=== PATIENT | female | born 1975 | race Caucasian/White ===

== ENCOUNTER 2020-08-26 02:24 | Inpatient (IN) | payer SELFPAY ==
[2020-08-26 02:24] VITALS: BP 132/90; PULSE 90; RESP 20; TEMP 36.5; O2SAT 97
[2020-08-26 02:25] VITALS: BMI 45.1
[2020-08-26 06:00] VITALS: BP 115/69; PULSE 74; RESP 18; TEMP 37.1; O2SAT 97
--- NOTE | 2020-08-26 10:29 | PM.NHP ---
Providers/Chief Complaint Admitting Physician: Víctor Guido DO Primary Care Provider: Sally Ledesma NP Chief Complaint: SI HPI NPU History of Present Illness Sandra Zarate is a 45 year old female with longstanding psychiatric history and polysubstance abuse presented to an [facility] emergency department with suicidal ideation with plan to overdose. Patient reports that she had been feeling depressed for several months in the context of ongoing substance use stating that she uses cannabis and methamphetamine twice a week. Patient reports past suicidal gestures/attempts but states that she has never had any intent or plan of ending her life. She reports that her last episode was 3 years ago at which time she was hospitalized and had been taking citalopram which she reports with good effect. She also reports that this was the last time she had substance counseling/treatment. Patient continues to report depressive symptoms, low mood, decreased energy and interest. Patient reports multiple stressors to include unstable living arrangement which exacerbate her symptoms. Patient denies any recent or past hypomanic or manic episodes. Patient denies any perceptual disturbances or hallucinations or delusions related to her mood symptoms. She currently denies any suicidal ideation or thoughts about self-harm. Patient reports intermittent anxiety symptoms but denies any recent panic attacks. Psychiatric review of systems is otherwise negative. Patient reports unstable living arrangement, states that she occasionally lives with her adult children Review of Systems General: Reports: 10 or more systems reviewed and unremarkable except in HPI and below Meds NPU Home Medications Medication Instructions Recorded Confirmed Last Taken Type No Known Home Medications 08/26/20 08/26/20 Unknown History Allergies Allergy/AdvReac Type Severity Reaction Status Date / Time No Known Allergies Allergy Verified 08/26/20 04:23 [facility] NPU Other Psychiatric History: Other Psychiatric History: Denies any recent medication management or outpatient treatment for behavioral health Reports last psychiatric hospitalization occurring 3 years ago and states being hospitalized on a couple of other occasions Reports multiple past suicidal gestures but denies any suicide attempts or self-harm behavior Mental Status Exam MSE Comments: Lying in bed, tired appearing, wearing hospital scrubs, obese, polite, interactive, calm, good eye contact Psychomotor activity is decreased, no agitation Speech is low volume, normal rate, spontaneous, fair articulation, not pressured I feel tired, congruent affect, not labile Soporific, oriented to person, place, time, situation Memory and concentration appear to be intact per interview Intellectual functioning appears to be average based on vocabulary, interview Thought process, linear, no flight of ideas, no looseness of associations Thought content, no delusions, no hallucinations, no suicidal or homicidal ideation Insight and judgment appear to be intact Vitals/I&O/Wt Last Vital Signs Temp 98.8 F 08/26/20 06:00 Pulse 74 08/26/20 06:00 Resp 18 08/26/20 06:00 BP 115/69 08/26/20 06:00 Pulse Ox 97 08/26/20 06:00 Weight last 48 hrs Weight 113.398 kg Weight 113.398 kg A&P Assessment and plan (1) Suicidal ideation: Status: Acute (2) Cannabis abuse: Status: Acute (3) Methamphetamine abuse: Status: Acute (4) Depressive disorder: Status: Acute Additional A&P Information [facility] with report of depressive symptoms for several months with ongoing methamphetamine and cannabis abuse off of medication and would likely benefit from restarting antidepressant with coordinated outpatient MEDICATION MANAGEMENT AND SUBSTANCE COUNSELING FOLLOW-UP. INVOLUNTARY ADMIT to inpatient psychiatry START citalopram 20 mg daily targeting mood, anxiety Encouraged patient to participate in unit activities to include group sessions, unit milieu Coordinate with criminal justice social worker for post discharge mental health and substance follow-up Involuntary Hold Information 96 Hour Hold: 96 Hour Involuntary Admission: Yes 96 Hour Hold Ending Date: 08/30/20 96 Hour Hold Ending Time: 02:15 Attestations NPU Medical Necessity Statement*: Psychiatric hospitalization indicated for medication stabilization, coordination for safe discharge Anticipate hospital stay to exceed 2 midnights Time Spent in Patient Care: Greater than 35 minutes (>than 50% of time spent in counselling and/or direct pt care on unit). 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
[2020-08-26] MEDS: citalopram 20 mg Tablet PO (10:39)
[2020-08-26 14:00] VITALS: BP 114/79; PULSE 80; RESP 14; TEMP 36.6; O2SAT 95
[2020-08-26] MEDS: hyDROXYzine 25 mg Capsule 50 MG PO (15:15)
--- NOTE | 2020-08-26 15:15 | PC.NURSE ---
PRN VISTARIL 50 MG GIVEN PO PER PT C/O STATED ANXIETY. PT STATED SHE IS COMING DOWN OFF METH WILL CONT TO MONITOR
[2020-08-26 22:00] VITALS: BP 118/76; PULSE 72; RESP 16; TEMP 36.7; O2SAT 96
[2020-08-27 05:39] VITALS: BP 119/82; PULSE 71; RESP 17; TEMP 36.9; O2SAT 95
[2020-08-27] MEDS: citalopram 20 mg Tablet PO (08:24)
--- NOTE | 2020-08-27 12:51 | PM.NPN ---
Subjective NPU Subjective: Interval history: She continues to report feeling tired but states that her mood has improved, denies any interval suicidal ideation She denies any interval psychotic symptoms Reports that her appetite is improved Reports improved sleep States that she has been compliant with her medication and denies any medication side effects States that she is interested in follow on medication management, therapy as well as substance counseling Mental Status Exam MSE Comments: Sitting up in her bed, calm, cooperative in bed, calm, interactive, good eye contact Psychomotor activity is neither increased nor decreased, no agitation Speech is normal volume, normal rate, spontaneous, fair articulation, not pressured I feel a little better, congruent affect, not labile Alert, oriented to person, place, time, situation Memory and concentration appear to be intact per interview Thought process, linear, no flight of ideas, no looseness of associations Thought content, no delusions, no hallucinations, no suicidal or homicidal ideation Insight and judgment appear to be intact Vitals/I&O/Wt Last Vital Signs Temp 98.4 F 08/27/20 05:39 Pulse 71 08/27/20 05:39 Resp 17 08/27/20 05:39 BP 119/82 08/27/20 05:39 Pulse Ox 95 08/27/20 05:39 Weight last 48 hrs Weight 113.398 kg Weight 113.398 kg A&P Assessment and plan (1) Suicidal ideation: Status: Acute (2) Depressive disorder: Status: Acute (3) Methamphetamine abuse: Status: Acute (4) Cannabis abuse: Status: Acute Additional A&P Information Reports improving mood CONTINUE current medication, continue to monitor Involuntary Hold Information 96 Hour Hold: 96 Hour Involuntary Admission: Yes 96 Hour Hold Ending Date: 08/30/20 96 Hour Hold Ending Time: 02:15 Attestations NPU Medical Necessity Statement*: Continues to require psychiatric hospitalization for medication stabilization Coding Level of Care 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
[2020-08-27 14:00] VITALS: BP 110/75; PULSE 74; RESP 18; TEMP 36.1; O2SAT 96
[2020-08-27] MEDS: hyDROXYzine 25 mg Capsule 50 MG PO ×2 (14:48→20:14)
--- NOTE | 2020-08-27 14:49 | PC.NURSE ---
Addendum entered by Nay Peters LPN 08/27/20 15:59: prn med effective no further c/o anxiety, pt asleep in bed in room, rest even et unlabored Original Note: PRN VISTARIL 50 MG GIVEN PO PER PT C/O STATED ANXIETY AND REQUEST OF ANXIETY MED. PT WITHDRAWN, ISOLATING TO ROOM. WILL CONT TO MONITOR FOR DESIRED MED EFFECTIVENESS.
--- NOTE | 2020-08-27 20:15 | PC.NURSE ---
pt requested anxiety med. pt stated, she's driving me batty! indicating another pt. visatril 50mg po given.
[2020-08-27 21:04] VITALS: PULSE 86; RESP 22; O2SAT 94
[2020-08-27 22:00] VITALS: BP 117/78; PULSE 75; RESP 17; TEMP 36.7; O2SAT 95
--- NOTE | 2020-08-27 23:02 | PC.NURSE ---
Patient could not tolerate C-PAP. Patient refuses to use / wear C-pap. C-PAP equipment removed from room RT notified. network control operators supervisor notified; 1:1 sitter sent back to Patricia per oracle data warehouse developer request.
[2020-08-28 06:00] VITALS: BP 112/78; PULSE 78; RESP 17; TEMP 36.7; O2SAT 94
[2020-08-28] MEDS: citalopram 20 mg Tablet PO (08:41)
--- NOTE | 2020-08-28 08:45 | P.PN_ITS ---
Subjective NPU Subjective: Interval history: Patient reporting some depressive symptoms today, states that she feels sad, denies any interval suicidal ideation Patient reports intermittent anxiety symptoms and stress related symptoms related to post discharge plan States that she slept well last evening Reports that her appetite is been good States that she has been compliant with her medication and denies any medication side effects Per staff, no interval behavioral disturbances Mental Status Exam MSE Comments: Sitting in the day room, polite, interactive, sitting mostly with her head down but making eye contact for interview, cooperative Psychomotor activity is decreased, no agitation Speech is normal volume, normal rate, spontaneous, fair articulation, not pressured I feel depressed, congruent affect, not labile Alert, oriented to person, place, time, situation Memory and concentration appear to be intact per interview Thought process, linear, no flight of ideas, no looseness of associations Thought content, no delusions, no hallucinations, no suicidal or homicidal ideation Insight and judgment appear to be intact Vitals/I&O/Wt Last Vital Signs Temp 98.0 F 08/28/20 06:00 Pulse 78 08/28/20 06:00 Resp 17 08/28/20 06:00 BP 112/78 08/28/20 06:00 Pulse Ox 94 08/28/20 06:00 A&P Assessment and plan (1) Suicidal ideation: Status: Acute (2) Depressive disorder: Status: Acute (3) Methamphetamine abuse: Status: Acute (4) Cannabis abuse: Status: Acute Additional A&P Information Patient reporting intermittent depressive symptoms, denies any interval suicidal ideation CONTINUE current medication, continue to monitor Continue coordination with social studies teacher for post discharge mental health care and substance counseling Involuntary Hold Information 96 Hour Hold: 96 Hour Involuntary Admission: Yes 96 Hour Hold Ending Date: 08/30/20 96 Hour Hold Ending Time: 02:15 Attestations NPU Medical Necessity Statement*: Continues to require psychiatric hospitalization for medication stabilization Coding Level of Care 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
--- NOTE | 2020-08-28 13:21 | PC.NURSE ---
pt has been more interactive today, mood seems to be improving, smiling a lot with staff interaction. Has been med compliant.
[2020-08-28 14:00] VITALS: BP 109/74; PULSE 73; RESP 16; TEMP 36.7; O2SAT 97
[2020-08-28] MEDS: hyDROXYzine 25 mg Capsule 50 MG PO (20:28)
[2020-08-28 21:14] VITALS: BP 113/76; PULSE 81; RESP 15; TEMP 37.1; O2SAT 98
[2020-08-29 06:00] VITALS: BP 134/80; PULSE 86; RESP 16; TEMP 36.9; O2SAT 96
[2020-08-29] MEDS: citalopram 20 mg Tablet PO (09:56)
--- NOTE | 2020-08-29 11:18 | PC.NURSE ---
Patient Note Patient has improved mood. Resting quietly in bed. No needs voiced.
--- NOTE | 2020-08-29 13:10 | PM.NDC ---
Diagnoses at Discharge Discharge Diagnosis (1) Suicidal ideation: Status: Acute (2) Depressive disorder: Status: Acute (3) Methamphetamine abuse: Status: Acute (4) Cannabis abuse: Status: Acute Reason for Visit Reason for Visit: SI Brief History: History of Present Illness Sandra Zarate is a 45 year old female with longstanding psychiatric history and polysubstance abuse presented to an [facility] emergency department with suicidal ideation with plan to overdose. Patient reports that she had been feeling depressed for several months in the context of ongoing substance use stating that she uses cannabis and methamphetamine twice a week. Patient reports past suicidal gestures/attempts but states that she has never had any intent or plan of ending her life. She reports that her last episode was 3 years ago at which time she was hospitalized and had been taking citalopram which she reports with good effect. She also reports that this was the last time she had substance counseling/treatment. Patient continues to report depressive symptoms, low mood, decreased energy and interest. Patient reports multiple stressors to include unstable living arrangement which exacerbate her symptoms. Patient denies any recent or past hypomanic or manic episodes. Patient denies any perceptual disturbances or hallucinations or delusions related to her mood symptoms. She currently denies any suicidal ideation or thoughts about self-harm. Patient reports intermittent anxiety symptoms but denies any recent panic attacks. Psychiatric review of systems is otherwise negative. Patient reports unstable living arrangement, states that she occasionally lives with her adult children Hospital Course Hospital Course Sandra presented to an outside hospital with depression, suicidality and active addiction. She was transferred to [facility] and ultimately admitted to the neuropsychiatric unit for definitive treatment of those issues. On the unit she slowly acclimated to the individual, group milieu therapies provided. She was started on Celexa and showed modest improvement. She was able to contract for safety prior to discharge. At the outside hospital, patient had routine laboratory studies which were within normal limits except for few outliers. Additionally there was a general medical evaluation which was also within normal limits and revealed no new acute processes. Discharge Summary: At the time of discharge, psychosis and lethality were denied. Mood and anxiety were well managed. Patient endorsed a plan to avoid all drugs of abuse and follow-up with the aftercare recommendations of the treatment team. Patient was evaluated and deemed to be absent credible lethality, and had achieved the maximum benefit from an inpatient hospitalization, so was discharged. Involuntary Hold Information 96 Hour Hold: 96 Hour Involuntary Admission: Yes 96 Hour Hold Ending Date: 08/30/20 96 Hour Hold Ending Time: 02:15 Mental Status Exam MSE Comments: This is an obese versus morbidly obese female with hospital scrubs on with adequate grooming and eye contact. No abnormal movements. Cooperative with exam in no acute distress. Speech was normal rate and volume. Mood described as better, affect euthymic. Thought process organized. Thought content: Patient denied suicidal or homicidal ideation, there are no delusions reported noted, she denied auditory visualizations. Attention and concentration were intact and memory appeared reliable but none were formally tested. She is alert and oriented x3. Insight and judgment were improving and impulse control was limited but improving. Discharge Data Vitals: Last Vital Signs Temp 98.5 F 08/29/20 13:39 Pulse 86 08/29/20 13:39 Resp 16 08/29/20 13:39 BP 134/80 08/29/20 13:39 Pulse Ox 96 08/29/20 13:39 Discharge Plan Discharge Patient Disposition: Home Condition: Stable Prescriptions: New citalopram 20 mg Tablet 20 mg PO DAILY 30 Days Qty: 30 RF: 1 hydroxyzine pamoate 25 mg Capsule 50 mg PO Q6H PRN (Reason: Anxiety) 30 Days Qty: 120 RF: 1 No Action No Known Home Medications RF: 0 Discharge Orders: Discharge Order (Routine); Ordered 08/29/20 Ordered By: Gallo Walls Referrals: [facility] [Other] (Please do a walk in Visit between 8AM and 4PM. M-F. Open Access paperwork will need to be done. Please bring 1. Photo ID 2. Proof of address 3. Proof of income 4. Two most current pay stubs or recent tax form 5. List of medications including over the counter. Also please bring $25 for Co-pay, the Co Pay will be between $0 and $25. ) [facility] [Other] (Call and get the virtual outpatient treatment started. Ypou will be placed on the list for inpatient. ) Discharge Diet: Regular Discharge Activity: Resume usual activity Patient Instructions: Opioid Safety Discharge Attestations NPU Time Spent in Discharge Care*: less than 30 min Specific Discharge Activities: Specific discharge activities: educating patient, discussing with case management manager/social workers/dc planners, documenting/other paperwork and evaluating patient/reviewing data Coding Level of Care Code Acute Chg FW DC note Diagnoses Suicidal ideation R45.851 Depressive disorder F32.9 Methamphetamine abuse F15.10 Cannabis abuse F12.10
[2020-08-29 13:39] VITALS: BP 134/80; PULSE 86; RESP 16; TEMP 36.9; O2SAT 96
[2020-08-29] MEDS: hyDROXYzine 25 mg Capsule 50 MG PO (15:21)
== END 2020-08-29 15:35 | disposition home or self-care (01) | DRG 881 ==
PROVIDERS: Admitting Provider Psychiatry & Neurology Psychiatry; PCP Nurse Practitioner Family; Visit Provider Psychiatry & Neurology Psychiatry
DX: F32.9 Major depressive disorder, single episode, unspecified (principal); R45.851 Suicidal ideations; Z68.42 Body mass index [BMI] 45.0-49.9, adult; F12.10 Cannabis abuse, uncomplicated; F15.10 Other stimulant abuse, uncomplicated; E66.01 Morbid (severe) obesity due to excess calories
CPT/HCPCS: 94660